=== PATIENT | female | born 1995 | race Two or more races ===

== ENCOUNTER → 2024-10-05 | Emergency (ER) | payer SELFPAY ==
[~2024-10-05] VITALS: Ht 165.1 cm; Wt 73.9 kg
[~2024-10-05] MED LIST: DICY20TA11 PO; FAMO-132 PO; FAMOTIDINE. 20 MG/2 ML VIAL IV ONE; LIDOCAINE VISCUS 2% 15 ML UDC ONE; MAG HYDROX/AL HYDROX/SIMETH 30 ML LIQUID UDC ONE; METOCLOPRAMIDE HCL 10 MG/2 ML VIAL ONE; MORPHINE SULFATE 4 MG/1 ML DISP.SYRIN ONE; ONDA4TAB5 PO; ONDANSETRON 4 MG/2 ML VIAL ONE
[2024-10-05] MEDS: IV NORMAL SALINE 1000 ML BAG IV ONE ×2 (15:45→20:30)
[2024-10-05] MEDS: LIDOCAINE VISCUS 2% 15 ML UDC MM ONE (15:45)
[2024-10-05 16:50] LABS: BASOPHILS % (AUTO) 0.1 % (0.0-2.0); EOSINOPHILS % (AUTO) 0.3 % (0.0-7.0); HEMATOCRIT 37.7 % (31.2-41.9); HEMOGLOBIN 13.2 g/dL (10.9-14.3); LYMPHOCYTES # (AUTO) 0.7 K/uL (0.8-4.8); LYMPHOCYTES % (AUTO) 4.8 % (20.5-51.5); MEAN CORPUSCULAR HEMOGLOBIN 33.1 uug (24.7-32.8); MEAN CORPUSCULAR HGB CONC 35 g/dL (32.3-35.6); MEAN CORPUSCULAR VOLUME 94.8 fL (75.5-95.3); MONOCYTES # (AUTO) 0.3 K/uL (0.1-1.30); MONOCYTES % (AUTO) 2.1 % (0.0-11.0); NEUTROPHILS # (AUTO) 13.6 K/uL (1.8-8.9); NEUTROPHILS % (AUTO) 92.7 % (38.5-71.5); PLATELET COUNT (AUTO) 307 K/uL (179-408); RED BLOOD CELL COUNT(AUTO) 3.98 MIL/uL (3.63-4.92); RED CELL DISTRIBUTION WIDTH 12.4 % (12.3-17.7); WHITE BLOOD COUNT (AUTO) 14.7 K/uL (3.8-11.8)
[2024-10-05] MEDS: FAMOTIDINE. 20 MG/2 ML VIAL IV ONE (16:55)
[2024-10-05] MEDS: ONDANSETRON 4 MG/2 ML VIAL IV ONE (16:55)
[2024-10-05] MEDS: MAG HYDROX/AL HYDROX/SIMETH 30 ML LIQUID UDC PO ONE (16:57)
[2024-10-05 17:03] LABS: DIFFERENTIAL COMMENT 1
[2024-10-05 17:28] LABS: CALCIUM 9.1 mg/dL (8.5-10.1); CREATININE 0.6 mg/dL (0.6-1.3); POTASSIUM 4.2 mmol/L (3.5-5.1)
[2024-10-05 17:32] LABS: ALBUMIN 4.2 g/dL (3.4-5.0); BILIRUBIN,DIRECT 0.1 mg/dL (0.0-0.2); BILIRUBIN,TOTAL 0.7 mg/dL (0.2-1.0); TOTAL PROTEIN, SERUM 7.8 g/dL (6.4-8.2)
[2024-10-05] MEDS: METOCLOPRAMIDE HCL 10 MG/2 ML VIAL IV ONE (17:38)
[2024-10-05 17:44] LABS: ETHANOL < 3 MG/DL (0-10)
[2024-10-05] MEDS: DICYCLOMINE HCL 20 MG/2 ML AMPUL IM STA (17:44)
[2024-10-05] MEDS: MORPHINE SULFATE 4 MG/1 ML DISP.SYRIN IV ONE ×2 (18:36→21:05)
[2024-10-05 23:33] VITALS: BP 116/62; TEMP 98; O2SAT 98
== END | disposition home or self-care (01) ==
LOC: ER 15:34
DX: R11.2 Nausea with vomiting, unspecified (principal); R19.7 Diarrhea, unspecified; R10.2 Pelvic and perineal pain; Z60.2 Problems related to living alone
CPT/HCPCS: 80076; 80048; 83690; 85025; 84702; 36415; 71045; 74176; 76705; 76856; 99285; 96361; 96374; 96375; 96376; 96372; 80320; J0500; J3490; J2765; J2405; J2270 ×2; J7040 ×2; A4606; A4663; G0480